=== PATIENT | female | born 1945 | race Caucasian/White ===

== ENCOUNTER 2017-05-09 10:10 | Emergency (ER) | payer OTHER ==
[~2017-05-09] VITALS: Ht 157.5 cm; Wt 67.1 kg
[2017-05-09 10:15] VITALS: BP_SYST 164
[2017-05-09] MEDS ORDERED: NACL 0.9% 1,000 ML IV ONE ×2 (10:34→10:45)
[2017-05-09 10:55] LABS: BILIRUBIN,URINE NEGATIVE (NEGATIVE); BLOOD, URINE NEGATIVE (NEGATIVE); CLARITY/URINE CLEAR (CLEAR); COLOR,URINE YELLOW (YELLOW); GLUCOSE,URINE NEGATIVE (NEGATIVE); KETONES,URINE NEGATIVE (NEGATIVE); LEUKOCYTE ESTERASE ,URINE NEGATIVE (NEGATIVE); NITRITE, URINE NEGATIVE (NEGATIVE); PH,URINE 5.5 (5.0-8.0); PROTEIN URINE NEGATIVE (NEGATIVE); UROBILINOGEN,URINE 0.2 (0.2-1.0)
[2017-05-09 11:19] LABS: HEMATOCRIT 44.1 % (36-48); HEMOGLOBIN 14.8 g/dL (12.0-16.0); MEAN CORPUSCULAR HEMOGLOBIN 30 pg (27-31); MEAN CORPUSCULAR HGB CONC 34 % (32-36); MEAN CORPUSCULAR VOLUME 91 fL (79.0-98.0); PLATELET COUNT (AUTO) 230 K/uL (130-430); RED BLOOD CELL COUNT(AUTO) 4.86 MIL/uL (4.2-6.2); WHITE BLOOD COUNT (AUTO) 9.1 K/uL (4.8-10.8)
[2017-05-09 11:20] LABS: CALCIUM 8.6 mg/dL (8.4-11.0); CREATININE 0.51 mg/dL (0.55-1.30); POTASSIUM 4.3 mmol/L (3.5-5.1)
[2017-05-09 11:24] LABS: ALBUMIN 3.9 g/dL (3.4-4.8); TOTAL BILIRUBIN 0.7 mg/dL (0.0-1.0)
[2017-05-09 11:43] LABS: BASOPHILS % (MANUAL) 0 % (0-2); EOSINOPHILS % (MANUAL) 0 % (0-7); LYMPHOCYTES % (MANUAL) 6 % (20-46); MONOCYTES % (MANUAL) 5 % (0-11)
[2017-05-09 14:45] VITALS: BP_SYST 156
== END 2017-05-09 14:45 | disposition home or self-care (01) ==
LOC: SED 10:10
DX: M41.9 Scoliosis, unspecified (principal); I10 Essential (primary) hypertension; E78.00 Pure hypercholesterolemia, unspecified
CPT/HCPCS: 36415; 74176; 80053; 81003; 83690; 85007; 85027; 96360; 99285; J7030

== ENCOUNTER 2017-05-10 22:16 | Emergency (ER) | payer OTHER ==
[~2017-05-10] VITALS: Ht 152.4 cm; Wt 67.1 kg
[2017-05-10 22:22] VITALS: BP_SYST 159
[2017-05-10] MEDS ORDERED: MORPHINE 4 MG/ML INJ. SYRINGE IM ONE (23:00)
[2017-05-10] MEDS ORDERED: ONDANSETRON HCL 4 MG/2 ML VIAL IM ONE (23:00)
[2017-05-10 23:13] VITALS: BP_SYST 138
== END 2017-05-10 23:13 | disposition home or self-care (01) ==
LOC: SED 22:16
DX: B02.9 Zoster without complications (principal); I10 Essential (primary) hypertension; E78.00 Pure hypercholesterolemia, unspecified
CPT/HCPCS: 96372; 99284; J2270; J2405

== ENCOUNTER 2018-07-18 07:30 | Inpatient (IN) | payer OTHER ==
[~2018-07-18] VITALS: Ht 154.9 cm; Wt 63.5 kg
[2018-07-28] MEDS ORDERED: METO1TAB40 PO (11:09)
[2018-07-28] MEDS ORDERED: ENAL20TA PO (11:09)
[2018-07-28] MEDS ORDERED: ROSU10TA PO (11:09)
[2018-07-28] MEDS ORDERED: XALEYE OP (11:09)
[2018-07-28] MEDS ORDERED: ALEN10TA6 PO (11:09)
[2018-08-01] MEDS ORDERED: CEFAZOLIN 2 GM IVPB PREMIX 50 ML IV ONE ×2 (06:45→06:53)
[2018-08-01] MEDS ORDERED: LR 1,000 ML IV SCH (08:34)
[2018-08-01] MEDS ORDERED: MORPHINE 4 MG/ML INJ. SYRINGE IVP PRN ×3 (08:45)
[2018-08-01] MEDS ORDERED: ONDANSETRON HCL 4 MG/2 ML VIAL IVP PRN ×2 (08:45→12:30)
[2018-08-01] MEDS ORDERED: DEXAMETHASONE SOD PHOSPHATE 4 MG/ML VIAL ONE (12:10)
[2018-08-01] MEDS ORDERED: ONDANSETRON HCL 4 MG/2 ML VIAL ONE (12:10)
[2018-08-01] MEDS ORDERED: SEVOFLURANE 15 MIN GAS INH ONE (12:10)
[2018-08-01] MEDS ORDERED: PROPOFOL 200MG/ 20ML VIAL (DIPRIVAN) IV ONE (12:10)
[2018-08-01] MEDS ORDERED: MIDAZOLAM HCL 5 MG/ML VIAL (VERSED) IV ONE (12:10)
[2018-08-01] MEDS ORDERED: fentaNYL CITRATE 250 MCG/5 ML AMP ONE (12:10)
[2018-08-01] MEDS ORDERED: NS IRRIG SOLN 1000 ML IR ONE (12:10)
[2018-08-01] MEDS ORDERED: SUCCINYLCHOLINE CHLORIDE 20 MG/ML(QUELICIN) ONE (12:10)
[2018-08-01] MEDS ORDERED: LR 1,000 ML IV.SOLN IV ONE (12:10)
[2018-08-01] MEDS ORDERED: KCL 20 mEq in D5/0.45NS 1000mL 1,000 ML IV SCH (12:26)
[2018-08-01] MEDS ORDERED: ONDANSETRON 4 MG ODT TAB PO PRN (12:30)
[2018-08-01] MEDS ORDERED: HYDROcodone/ACETAMIN 5-325 MG TAB (NORCO/ VICODIN) PO PRN (12:30)
[2018-08-01] MEDS ORDERED: KCL 20 mEq in 0.45% NS 1000 mL 1,000 ML IV SCH (12:30)
[2018-08-01 13:25] VITALS: BP_SYST 142
[2018-08-01 14:04] LABS: ALBUMIN 3.4 g/dL (3.4-4.8); CALCIUM 8.2 mg/dL (8.4-11.0)
[2018-08-01 16:05] VITALS: BP_SYST 144
[2018-08-01 16:38] VITALS: BP_SYST 148
[2018-08-01] MEDS ORDERED: LATANOPROST 2.5 ML DROPS (XALATAN) OP SCH (18:00)
[2018-08-01 20:06] VITALS: BP_SYST 121
[2018-08-01] MEDS: CALCIUM 500 MG/TAB PO SCH (21:16)
[2018-08-01] MEDS: ENALAPRIL MALEATE 10 MG TABLET (VASOTEC) PO SCH (21:18)
[2018-08-01 22:02] LABS: ALBUMIN 3.2 g/dL (3.4-4.8); CALCIUM 7.7 mg/dL (8.4-11.0)
[2018-08-02 00:41] VITALS: BP_SYST 123
[2018-08-02] MEDS ORDERED: LEVOTHYROXINE SODIUM 0.15 MG TABLET PO SCH (07:00)
[2018-08-02 07:05] LABS: ALBUMIN 3.1 g/dL (3.4-4.8); CALCIUM 7.6 mg/dL (8.4-11.0)
[2018-08-02 08:06] VITALS: BP_SYST 124
[2018-08-02] MEDS: ENALAPRIL MALEATE 10 MG TABLET (VASOTEC) PO SCH (08:36)
[2018-08-02] MEDS: CALCIUM 500 MG/TAB PO SCH (08:37)
[2018-08-02] MEDS ORDERED: METOPROLOL SUCCINATE 50 MG TAB.SR.24H (TOPROL XL) PO SCH (09:00)
[2018-08-02] MEDS ORDERED: HYDROCHLOROTHIAZIDE 12.5 MG CAPSULE (HCTZ) PO SCH (09:00)
[2018-08-02 12:07] VITALS: BP_SYST 128
[2018-08-02 14:04] LABS: ALBUMIN 3.2 g/dL (3.4-4.8); CALCIUM 7.5 mg/dL (8.4-11.0)
[2018-08-02 14:18] VITALS: BP_SYST 128
[2018-08-02] MEDS ORDERED: LEVO25TA7 PO (14:42)
[2018-08-02] MEDS ORDERED: [UNRECOGNIZED DRUG - CODE] PO (14:43)
[2018-08-02] MEDS ORDERED: HYDR-4272 PO (14:44)
[2018-08-02 15:54] VITALS: BP_SYST 109
== END 2018-08-02 15:21 | disposition home or self-care (01) | DRG 627 ==
LOC: SDS 08-01 06:08 → SMU 08-01 06:08 → EDSTATUS 08-01 07:30 → SDS 08-01 13:42 → SMU 08-01 13:42 → SDS 08-02 11:02 → SMU 08-02 11:02
PROVIDERS: ADMIT Otolaryngology; ATTEND Otolaryngology
PROC: 0GTH0ZZ Resection of Right Thyroid Gland Lobe, Open Approach (ICD-10-PCS; 2018-08-01)
PROC: 0GTG0ZZ Resection of Left Thyroid Gland Lobe, Open Approach (ICD-10-PCS; principal; 2018-08-01 07:30)
DX: E04.2 Nontoxic multinodular goiter (principal)
CPT/HCPCS: 36415; 71046-TC; 82040-TC; 82310-TC; 83970; 87081; 88307; C1782; J0330; J0690; J1100; J2250; J2405; J2704; J3010; J3480; J7120

== ENCOUNTER 2021-10-30 08:54 | Day surgery (SDC) | payer OTHER ==
[~2021-10-30] VITALS: Ht 144.8 cm; Wt 70.8 kg
[~2021-10-30 08:54] MED LIST: ALEN10TA25 PO; CALC-1230 PO; CEFAZOLIN 2 GM IVPB PREMIX 50 ML IV ONE; ENAL20TA18 PO; HYDR-4272 PO; LEVO25TA7 PO; METO1TAB40 PO; ROSU10TA2 PO; XALEYE OP
[2021-10-30] MEDS ORDERED: IBUPROFEN 600 MG TABLET PO ONE (12:00)
[2021-10-30] MEDS ORDERED: METOCLOPRAMIDE HCL 10 MG/2 ML VIAL IVP PRN (12:00)
[2021-10-30] MEDS ORDERED: KETOROLAC TROMETHAMINE 30 MG VIAL IVP PRN (12:00)
[2021-10-30] MEDS ORDERED: ONDANSETRON HCL 4 MG/2 ML VIAL IVP PRN (12:00)
[2021-10-30] MEDS ORDERED: MORPHINE 4 MG INJ. 4 MG/ML VIAL IVP PRN (12:00)
[2021-10-30] MEDS ORDERED: HYDROmorphone 1 MG/ML INJ. CARTRIDGE IVP PRN (12:00)
[2021-10-30] MEDS ORDERED: ONDANSETRON HCL 4 MG/2 ML VIAL ONE (13:30)
[2021-10-30] MEDS ORDERED: SEVOFLURANE 15 MIN GAS INH ONE (13:30)
[2021-10-30] MEDS ORDERED: LR 1,000 ML IV.SOLN IV ONE (13:30)
[2021-10-30] MEDS ORDERED: PROPOFOL 200MG/ 20ML VIAL (DIPRIVAN) IV ONE (13:30)
[2021-10-30] MEDS ORDERED: ROCURONIUM BROMIDE 10 MG/ML (ZEMURON) ONE (13:30)
[2021-10-30] MEDS ORDERED: SUCCINYLCHOLINE CHLORIDE 20 MG/ML(QUELICIN) ONE (13:30)
[2021-10-30 15:42] VITALS: BP_SYST 159
== END 2021-10-30 15:50 | disposition home or self-care (01) ==
LOC: SDS 08:54 → SMU 08:55 → SDS 15:50
PROVIDERS: ATTEND Surgery
DX: R22.2 Localized swelling, mass and lump, trunk (principal); D17.1 Benign lipomatous neoplasm of skin and subcutaneous tissue of trunk; M53.9 Dorsopathy, unspecified; I10 Essential (primary) hypertension; E78.5 Hyperlipidemia, unspecified; E03.9 Hypothyroidism, unspecified; E11.9 Type 2 diabetes mellitus without complications; Z79.899 Other long term (current) drug therapy; Z20.822 Contact with and (suspected) exposure to COVID-19
CPT/HCPCS: 49320; 36415; 88304; 87426; 22902 ×2; 21931; 21930 ×2; J0690; J2405; J2704; J0330; J7120; C1727

== ENCOUNTER 2023-07-22 07:00 | Day surgery (SDC) | payer OTHER ==
[~2023-07-22] VITALS: Ht 144.8 cm; Wt 71.2 kg
[~2023-07-22 07:00] MED LIST changes: -CEFAZOLIN 2 GM IVPB PREMIX 50 ML IV ONE; +CEFAZOLIN SOD 2 GM in D5W 50 ML IV ONE; +ENAL-79 PO; -ENAL20TA18 PO
[2023-07-22] MEDS ORDERED: BUPIVACAINE /PF 0.25% 30 ML VIAL INJ ONE (09:19)
[2023-07-22 09:20] VITALS: O2SAT 97
[2023-07-22] MEDS ORDERED: BUPIVACAINE LIPOSOME/PF 266 MG/20 ML VIAL INFIL ONE (09:21)
[2023-07-22] MEDS ORDERED: METOCLOPRAMIDE HCL 10 MG/2 ML VIAL IVP PRN (10:30)
[2023-07-22] MEDS ORDERED: ONDANSETRON HCL 4 MG/2 ML VIAL IVP PRN (10:30)
[2023-07-22] MEDS ORDERED: ACETAMINOPHEN I.V. 1000 MG 100 ML IV ONE (10:30)
[2023-07-22] MEDS ORDERED: HYDROmorphone 1 MG/ML INJ. CARTRIDGE IVP PRN (10:30)
[2023-07-22] MEDS ORDERED: KETOROLAC TROMETHAMINE 30 MG VIAL IVP PRN (10:30)
[2023-07-22] MEDS ORDERED: IBUPROFEN 400 MG TABLET PO ONE (10:30)
[2023-07-22 17:44] VITALS: BP_SYST 136; PULSE 60; RESP 20
== END 2023-07-22 13:48 | disposition home or self-care (01) ==
LOC: SDS 07:00 → SMU 07:01 → SDS 13:48
PROVIDERS: ATTEND Surgery
DX: K43.2 Incisional hernia without obstruction or gangrene (principal); R10.33 Periumbilical pain; I10 Essential (primary) hypertension; E78.5 Hyperlipidemia, unspecified; E03.9 Hypothyroidism, unspecified; M19.90 Unspecified osteoarthritis, unspecified site; M81.0 Age-related osteoporosis without current pathological fracture; Z79.890 Hormone replacement therapy; Z79.899 Other long term (current) drug therapy
CPT/HCPCS: 87081; 49591; 88302; C9290; J3490 ×2; J0690; J1885; J2405; J2704; J0330; J7060; J7120; C1781; J0131; J2710